=== PATIENT | male | born 2000 | race Caucasian/White ===

== ENCOUNTER 2021-08-08 09:31 | Emergency (ER) | payer SELFPAY ==
[~2021-08-08] VITALS: Ht 167.6 cm; Wt 80.0 kg
[2021-08-08 09:36] VITALS: BP 114/60
[2021-08-08] MEDS ORDERED: ACETAMINOPHEN 325MG TABLET PO ONE (10:30)
[2021-08-08] MEDS ORDERED: IBUPROFEN 600MG TABLET PO ONE (10:30)
[2021-08-08] MEDS ORDERED: TETANUS, DIPHTHERIA, PERTUSSIS VAC/PF 0.5ML (>10YR OLD) IM ONE (10:30)
[2021-08-08] MEDS ORDERED: BACITRACIN ZINC OINT UDPKT TOP ONE (10:30)
[2021-08-08] MEDS ORDERED: IBUP-2029 MT (12:00)
== END 2021-08-08 12:31 | disposition home or self-care (01) ==
LOC: EDBD 09:31 → ER 09:31
DX: M79.604 Pain in right leg (principal); V19.9XXA Pedal cyclist (driver) (passenger) injured in unspecified traffic accident, initial encounter; Y93.89 Activity, other specified; Y92.89 Other specified places as the place of occurrence of the external cause; Y99.8 Other external cause status
CPT/HCPCS: 73552; 73562; 73590; 99284